=== PATIENT | male | born 1995 ===

== ENCOUNTER 2016-10-23 00:52 | Emergency (ER) | payer SELFPAY ==
[2016-10-23 01:22] VITALS: BP 139/92
[2016-10-23] MEDS ORDERED: D5NS 0.2% 1,000 ML IV SCH (02:00)
[2016-10-23 03:12] LABS: Basophils % (Auto) 0.2 % (0.0-1.8); Eosinophils % (Auto) 1.7 % (0.0-4.3); Hemoglobin 12.3 gm/dl (11.8-15.2); Mean Corpuscular HGB Conc 35 % (32-34); Mean Corpuscular Hemoglobin 30 pg (28-32); Mean Corpuscular Volume 85 fl (84-94); Platelet Count 240 K/mm3 (140-440); Red Blood Count 4.15 M/mm3 (3.65-5.03); Red Cell Distribution Width 17.1 % (13.2-15.2); Reticulocyte % 4.45 % (0.78-2.58)
--- NOTE | 2016-10-28 11:24 | ED Elopement Review ---
ED Pt Elopement review - Results review Lab results: Laboratory Tests 10/23/16 02:13 WBC 12.0 H RBC 4.15 Hgb 12.3 Hct 35.0 L MCV 85 MCH 30 MCHC 35 H RDW 17.1 H Plt Count 240 Lymph % (Auto) 37.4 H [place] % (Auto) 9.8 H Eos % (Auto) 1.7 Baso % (Auto) 0.2 Lymph # 4.5 [place] # 1.2 H Eos # 0.2 Baso # 0.0 Seg Neutrophils % 50.9 Seg Neutrophils # 6.1 Percent Retic 4.45 H - Call Back decision Pt Call Back Decision: Call pt to return to ED TORI (abnormal cbc and retic count)
== END 2016-10-23 02:15 | disposition left against medical advice (07) ==
LOC: ED 00:52
DX: D57.00 Hb-SS disease with crisis, unspecified (principal); Z53.21 Procedure and treatment not carried out due to patient leaving prior to being seen by health care provider
CPT/HCPCS: 36415; 85025; 85045

== ENCOUNTER 2016-11-28 19:15 | Emergency (ER) | payer SELFPAY ==
[2016-11-28 19:33] VITALS: BP 131/95
[2016-11-28 19:50] LABS: Basophils % (Auto) 0.4 % (0.0-1.8); Eosinophils % (Auto) 0.4 % (0.0-4.3); Hematocrit 34.2 % (35.5-45.6); Hemoglobin 11.9 gm/dl (11.8-15.2); Mean Corpuscular HGB Conc 35 % (32-34); Mean Corpuscular Hemoglobin 30 pg (28-32); Mean Corpuscular Volume 85 fl (84-94); Platelet Count 238 K/mm3 (140-440); Red Blood Count 4.04 M/mm3 (3.65-5.03); Red Cell Distribution Width 17.1 % (13.2-15.2); Reticulocyte % 3.98 % (0.78-2.58); White Blood Count 11.8 K/mm3 (4.5-11.0)
[2016-11-28] MEDS ORDERED: D5NS 0.2% 1,000 ML IV SCH (20:00)
--- NOTE | 2016-12-03 13:38 | ED Elopement Review ---
ED Pt Elopement review - Results review Lab results: Laboratory Tests 11/28/16 19:36 WBC 11.8 H RBC 4.04 Hgb 11.9 Hct 34.2 L MCV 85 MCH 30 MCHC 35 H RDW 17.1 H Plt Count 238 Lymph % (Auto) 23.2 [place] % (Auto) 8.0 H Eos % (Auto) 0.4 Baso % (Auto) 0.4 Lymph # 2.7 [place] # 1.0 H Eos # 0.0 Baso # 0.0 Seg Neutrophils % 68.0 Seg Neutrophils # 8.0 H Percent Retic 3.98 H - Call Back decision Pt Call Back Decision: No action required
== END 2016-11-29 01:48 | disposition left against medical advice (07) ==
LOC: ED 19:15
DX: M79.601 Pain in right arm (principal); Z53.21 Procedure and treatment not carried out due to patient leaving prior to being seen by health care provider
CPT/HCPCS: 36415; 85025; 85045